=== PATIENT | male | born 1965 | race Caucasian/White ===

== ENCOUNTER 2016-07-04 11:49 | Emergency (ER) | payer OTHER ==
[~2016-07-04] VITALS: Ht 177.8 cm; Wt 80.0 kg
[~2016-07-04 11:49] MED LIST: CLON1 PO; CYAN1000P IM; DILA8TAB4 PO; GLUCTAB PO; HUMUINJ5 SC; LANTUSP SQ; LIPI40TA PO; LISI-357 PO; METH10TA PO; VITA100018 PO; ZOLO100T PO
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
[2016-07-04 12:41] VITALS: BP 140/81; PULSE 98; RESP 16; TEMP 98.9; O2SAT 98
[2016-07-04] MEDS ORDERED: GLUCAGON 1 MG/ML VIAL OTHER PRN (12:45)
[2016-07-04] MEDS ORDERED: DEXTROSE 50% IN WATER 50 ML VIAL(D50) IV PUSH PRN (12:45)
[2016-07-04] MEDS ORDERED: LISI-519 PO (12:54)
[2016-07-04] MEDS ORDERED: INSU100V2 (12:54)
[2016-07-04] MEDS ORDERED: KLON2TAB PO (12:54)
[2016-07-04] MEDS ORDERED: TIZA6CAP3 PO (12:54)
[2016-07-04] MEDS ORDERED: LANTUS2P SQ (12:54)
[2016-07-04] MEDS ORDERED: VENL100T PO (12:54)
[2016-07-04] MEDS ORDERED: LIPI40TA PO (12:54)
[2016-07-04 13:03] LABS: AUTOMATED NEUTROPHIL # 13.2 TH/MM3 (1.8-7.7); BASOPHIL # 0.1 TH/MM3 (0-0.2); BASOPHIL % 0.4 % (0.0-2.0); EOSINOPHIL # 0.1 TH/MM3 (0-0.4); EOSINOPHIL % 0.7 % (0.0-4.0); HEMATOCRIT 43.2 % (39.0-51.0); HEMO FLAGS DIFF FINAL; LYMPH % 10.3 % (9.0-44.0); LYMPHOCYTE # 1.6 TH/MM3 (1.0-4.8); MEAN CELL VOLUME 89.3 FL (80.0-100.0); MEAN CORPUSCULAR HEMOGLOBIN 30.4 PG (27.0-34.0); MEAN CORPUSCULAR HGB CONC 34.1 % (32.0-36.0); MONO % 4.8 % (0.0-8.0); NEUT % 83.8 % (16.0-70.0); PLATELET COUNT 228 TH/MM3 (150-450); RED BLOOD COUNT 4.84 MIL/MM3 (4.50-5.90); RED CELL DISTRIBUTION WIDTH 13.3 % (11.6-17.2); WHITE BLOOD COUNT 15.7 TH/MM3 (4.0-11.0)
[2016-07-04 13:16] LABS: ANION GAP 9 MEQ/L (5-15); BICARBONATE 23.8 MEQ/L (21.0-32.0); BLOOD UREA NITROGEN 11 MG/DL (7-18); CHLORIDE 108 MEQ/L (98-107); GLOMERULAR FILTRATION RATE 108 ML/MIN (>89); POTASSIUM 3.5 MEQ/L (3.5-5.1); SODIUM (NA) 141 MEQ/L (136-145)
[2016-07-04 13:19] VITALS: BP 128/70; PULSE 104; RESP 20; TEMP 98.1; O2SAT 98
[2016-07-04] MEDS: INSULIN NovoLIN REGULAR SUPPLEMENTAL SCALE SQ SCH ×3 (16:00→21:34)
[2016-07-04 18:57] VITALS: BP 141/84; PULSE 103; RESP 20; O2SAT 96
[2016-07-04] MEDS ORDERED: ACETAMINOPHEN 500 MG CPLT PO ONE (21:45)
[2016-07-04 22:22] VITALS: BP 133/80; PULSE 100; RESP 19; O2SAT 95
[2016-07-05 02:10] LABS: AMPHETAMINE, URINE NEG (NEG); BARBITURATES, URINE NEG (NEG); COCAINE, URINE NEG (NEG)
[2016-07-05 02:41] VITALS: BP 123/75; PULSE 88; RESP 16; O2SAT 100
[2016-07-05 06:00] VITALS: BP 150/80; PULSE 110; RESP 16; O2SAT 100
[2016-07-05] MEDS: INSULIN NovoLIN REGULAR SUPPLEMENTAL SCALE SQ SCH (06:54)
[2016-07-05] MEDS ORDERED: NICOTINE 21 MG/24 HR PATCH T-DERMAL ONE (09:00)
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
== END 2016-07-05 10:45 | disposition home or self-care (01) ==
LOC: NEPJ 11:49
DX: F43.23 Adjustment disorder with mixed anxiety and depressed mood (principal); F43.10 Post-traumatic stress disorder, unspecified; E11.9 Type 2 diabetes mellitus without complications; E78.00 Pure hypercholesterolemia, unspecified; I10 Essential (primary) hypertension; Z72.0 Tobacco use
CPT/HCPCS: 80048; 80307; 85025; 96372